=== PATIENT | female | born 1940 | race Caucasian/White ===

== ENCOUNTER → 2018-01-16 | Outpatient (CLI) | payer MEDICARE, BC ==
[2018-01-16 10:21] LABS: Albumin 3.9 g/dL (3.5-5.0); Calcium 9.4 mg/dL (8.4-10.2); Potassium 4.8 mmol/L (3.5-5.1); Total Bilirubin 0.5 mg/dL (0.2-1.3); Total Protein 6.6 g/dL (6.3-8.2)
[2018-01-16 10:25] LABS: Basophils % (A) 1 %; Eosinophils # (A) 0.1 k/uL (0-0.7); Eosinophils % (A) 2 %; HCT 38.9 % (34.0-46.0); HGB 12.9 gm/dL (11.4-16.0); Lymphocytes # (A) 1.2 k/uL (1.0-4.8); Lymphocytes % (A) 17 %; MCH 32.2 pg (25.0-35.0); MCHC 33.1 g/dL (31.0-37.0); Mean Platelet Volume 6.9; Monocytes # (A) 0.4 k/uL (0-1.0); Monocytes % (A) 6 %; Neutrophils # (A) 4.8 k/uL (1.3-7.7); Neutrophils % (A) 71 %; Platelet Count 221 k/uL (150-450); RBC 4.01 m/uL (3.80-5.40); RDW 12.8 % (11.5-15.5); WBC 6.7 k/uL (3.8-10.6)
[2018-01-16 10:56] LABS: Appearance,Urine Clear (Clear); Bacteria,Urine Rare /hpf; Bilirubin,Urine Negative (Negative); Blood,Urine Negative (Negative); Color,Urine Yellow; Glucose,Urine (UA) Negative (Negative); Ketones,Urine Negative (Negative); Leukocyte Esterase,Urine Trace (Negative); Mucus,Urine Rare /hpf; Nitrite,Urine Negative (Negative); Protein,Urine Negative (Negative); RBC,Urine 2 /hpf (0-5); Specific Gravity,Urine 1.017 (1.001-1.035); Squamous Epithelial Cell,Urine 1 /hpf (0-4); Urobilinogen,Urine <2.0 mg/dL (<2.0); WBC,Urine 2 /hpf (0-5)
== END | disposition home or self-care (01) ==
LOC: LABWHC1 09:44
PROVIDERS: ATTEND Internal Medicine
DX: E55.9 Vitamin D deficiency, unspecified (principal); I10 Essential (primary) hypertension
CPT/HCPCS: 36415; 80053; 80061; 81001; 82306; 85025

== ENCOUNTER 2018-02-13 13:03 | Inpatient (IN) | payer MEDICARE, BC ==
[2018-02-07 12:30] VITALS: BMI 39.4
[~2018-02-13 13:03] MED LIST: HYDROmorphone 0.5 MG/0.5 ML SYRINGE IVP PRN; ONDANSETRON 4 MG/2 ML VIAL IVP ONE; ONDANSETRON 4 MG/2 ML VIAL ONE; ceFAZolin IN SWFI 2 GM/20 ML SYRINGE IVP ONE; fentaNYL (PF) 50 MCG/ML 2 ML AMP IV PRN
[2018-02-13] MEDS: LACTATED RINGERS 1,000 ML IV SCH ×3 (13:49→20:25)
[2018-02-13] MEDS ORDERED: LIDOCAINE 1% 20 ML VIAL (10MG/ML) FOR IV START INTRADERMA ONE (13:50)
[2018-02-13] MEDS ORDERED: MIDAZOLAM 2 MG/2 ML VIAL ONE ×2 (15:02→15:39)
[2018-02-13] MEDS ORDERED: ROPIVACAINE 5 MG/ML 30 ML VIAL ONE (15:39)
[2018-02-13] MEDS ORDERED: PROPOFOL 10 MG/ML 20 ML VIAL IV ONE (15:39)
[2018-02-13] MEDS ORDERED: fentaNYL (PF) 50 MCG/ML 2 ML AMP ONE (15:39)
[2018-02-13] MEDS ORDERED: SUCCINYLCHOLINE CHLORIDE 100 MG/5 ML SYR IV ONE (15:39)
[2018-02-13] MEDS ORDERED: HYDROmorphone (PF) 1 MG/ML ONE (15:39)
[2018-02-13] MEDS ORDERED: PHENYLEPHRINE-0.9% NACL SYG 1 MG/10 ML SYRINGE ONE (15:39)
[2018-02-13] MEDS ORDERED: LIDOCAINE 1% INJ 10MG/ML (20 ML MDV) ONE (15:39)
[2018-02-13] MEDS ORDERED: TEMAZEPAM 15 MG CAP PO PRN (16:54)
[2018-02-13] MEDS ORDERED: ONDANSETRON 4 MG/2 ML VIAL IVP PRN (16:54)
[2018-02-13] MEDS ORDERED: METOCLOPRAMIDE 5 MG/ML 2 ML VIAL IVP PRN (16:54)
[2018-02-13] MEDS ORDERED: SENNOSIDES-DOCUSATE SODIUM 1 EACH TAB PO PRN (16:54)
[2018-02-13] MEDS ORDERED: HYDROmorphone 1 MG/ML 1 ML SYRINGE IVP PRN ×2 (16:54)
[2018-02-13] MEDS ORDERED: diphenhydrAMINE 25 MG CAP PO PRN (16:54)
[2018-02-13] MEDS ORDERED: PROCHLORPERAZINE SUPPOSITORY 25 MG SUPP RECTAL PRN (16:54)
[2018-02-13] MEDS ORDERED: HYDROcodone/APAP 7.5-325MG 1 EACH TAB PO PRN (16:59)
--- NOTE | 2018-02-13 19:01 | P.OP ---
Date of Procedure: 02/13/18 Preoperative Diagnosis: 1. Left hypermobile hallux valgus 2. Left second tarsometatarsal joint arthritis 3. Obesity with a BMI of 39.5 4. Coronary artery disease status post stenting currently on Plavix 5. Hypertension 6. Hypercholesterolemia 7. Left gastrocnemius equinus contracture Postoperative Diagnosis: Same Procedure(s) Performed: 1. Arthrodesis of multiple tarsometatarsal joints (arthrodesis of the first and second tarsometatarsal joint), left foot 2. Correction of left hallux valgus with modified Lapidus procedure 3. Left gastroc recession 4. Application of short leg splint by physician, left leg Anesthesia: FELY Surgeon: Alan Domingo Chief Operator Reformer #1: Brett Maza Estimated Blood Loss (ml): 50 Pathology: none sent Condition: stable Disposition: PACU Indications for Procedure: The patient is a very pleasant 77-year-old female with multiple medical problems including obesity with BMI of 39.5 and coronary artery disease status post stenting currently on Plavix who has had a long-standing history of problems with both of her legs and feet. The patient has been seeing me for a left hallux valgus and midfoot arthritis. Her main complaint on the left foot is a large dorsal bump over the second tarsometatarsal joint. Her bunion also bothers her. She has failed over a year of nonsurgical treatment including activity modification, shoe modification, orthotics, anti-inflammatory pain medications, cortisone injections, and therapy. She requested surgery. My recommendation was to correct her hypermobile bunion with a modified Lapidus procedure and surgically fuse her second tarsometatarsal joint. We had a lengthy discussion with the patient preoperatively on the potential risks and complications of surgery. She understands that she is a higher risk of having a complication due to her obesity, history of coronary artery disease, and Plavix use. She was adamant that she wanted to go forward with surgery. We discussed potential risks and complications of surgery including but not limited to risk of anesthesia, risk of superficial infection, risk of deep infection, risk of damage to local blood vessels or nerves, risk of delayed wound healing, risk of superficial wound necrosis, risk of deep wound necrosis, risk of nonunion of the fusion site, risk of malunion of the fusion site, of under correction of the hallux valgus, risk of overcorrection of the hallux valgus, risk of symptomatically hardware, risk of intraoperative fracture, risk of postoperative fracture, risk of DVT, risk of PE, risk of chronic pain, risk of worsening pain, risk of need for further surgery, risk of other medical complications, and possibly loss of life or limb. The patient voiced her understanding of these potential complications and provided her verbal and written consent to go forward with surgery. Operative Findings: The patient had very thin and friable skin that was easily torn with even gentle retraction. After fusing the first and second tarsometatarsal joint I elected to not address the third tarsometatarsal joint due to concern about soft tissue compromise due to her very tenuous soft tissue envelope. Intraoperative fluoroscopy shots showed minimal degenerative changes on the oblique view of the third tarsometatarsal joint. After fusion of the second and first tarsometatarsal joint there was no longer a dorsal prominence which was her main complaint prior to surgery Description of Procedure: This was identified and prepped of holding and the correct left leg was marked my initials. I reviewed the consent form with the patient all of her questions were answered. The patient had a popliteal and saphenous nerve block placed by anesthesia. She was then brought back to the operating room and positioned on the OR table. A general anesthetic was administered. Preoperative antibiotics were administered. A tourniquet was applied to the proximal aspect of the left leg. All bony prominences were well-padded. The left leg was then prepped and draped in the standard sterile fashion. Prior to starting surgery timeout was performed identifying the correct patient, operative extremity, and procedure. The patient's leg was then elevated, exsanguinated with an Esmarch bandage, and the tourniquet was inflated to 250 mmHg. I began by performing a gastroc recession. An incision was marked out over the medial muscle belly of the distal gastrocnemius 1 thumb breadth posterior to the tibia. Skin incision was made with a scalpel. Dissection was carried down carefully to the subcutaneous tissue with tenotomy scissors. Superficial fascia was incised. I bluntly developed the interval between the gastrocnemius aponeurosis and superficial fascia and between the gastrocnemius aponeurosis and soleus. The plantaris tendon was identified and a 1 cm section removed. Modified right angle retractors were placed isolating the gastrocnemius aponeurosis. I verified that the sural nerve was not adherent to the aponeurosis. The aponeurosis was then sharply released from medial to lateral in its entirety with scissors. Immediately upon releasing the gastrocnemius aponeurosis there is a significant increase in dorsiflexion of the ankle. The wound was then copiously irrigated and closed in layers. Attention was then turned to the dorsal aspect of the left foot. A longitudinal incision was marked out centered between the first and second metatarsals over the midfoot. Skin incision was made with a scalpel. Dissection was carried down carefully to subcutaneous tissue with tenotomy scissors. The sheath over the EHL tendon was identified, incised longitudinally in line with the skin incision, and the EHL tendon was retracted laterally. The periosteum and capsule over the first and second tarsometatarsal joint was then sharply elevated. I began by addressing the hypermobile hallux valgus deformity. A freehanded sawblade was used to remove adhesions medially, plantarly, and laterally. Once the first metatarsal base was adequately released a stab incision was made distally in the first webspace and a lateral release was performed. I released the lateral capsule of the first MTP joint. A varus force was applied to the big toe to release the contracted lateral soft tissues. A joystick was then placed in the base of the first metatarsal. Fluoroscopy was brought in and I was able to adequately reduce the first metatarsal over the sesamoids. Fulcrum was then placed laterally at the base of the first metatarsal. The reduction clamp from the set was then used. One carlotta of the reduction clamp was placed through a stab incision over the lateral aspect of the second metatarsal and the base of the reduction clamp was placed over the medial wall of the first metatarsal. The reduction clamp was then gently tightened until the 1-2 intermetatarsal angle was closed down and the sesamoids were covered. A pin was placed through the reduction guide. Fluoroscopy was used to verify that the 1-2 intermetatarsal angle was closed down. The joint finder was then placed laterally within the joint and the Guide was placed over the joint finder. The cutting guide was pinned into place. A small microsagittal saw was used to remove a small wafer of bone from the base of the first metatarsal and medial cuneiform taking care to not shorten the first ray. Both wafers of bone were removed. The joint was copiously irrigated. The cutting guide was removed and a distractor/compressor device was placed. The joint was gently distracted and a 2.0 mm drill bit was used to fenestrate the exposed bone at the base of the first metatarsal and medial cuneiform. The 12 intermetatarsal clamp and pin was then removed. Compression was applied across the first tarsometatarsal joint. The joint was compressed and there was correction of the hallux valgus deformity. Fluoroscopy was used to verify both apposition of the joint surface and correction of the hallux valgus. I then proceeded to place two 2.7 locking plates dorsally and medially to provide fixation across the first tarsometatarsal joint. Attention was then turned to the second tarsometatarsal joint. A section was carried through the medial incision to the lateral aspect of the second metatarsal base. There were multiple large osteophytes over the dorsal aspect of the first metatarsal which were taken down with a rongeur until the surface was flush. The joint was gently distracted and an osteotome was used to remove cartilage from the base of the second metatarsal and middle cuneiform. The wound was copiously irrigated. A 2.0 mm drill bit was used to fenestrate the bony surfaces to help facilitate fusion. The joint was gently compressed and pinned into place. A 6-hole 2.7 mm plate was contoured over the dorsal aspect of the second tarsometatarsal joint. Nonlocking 2.7 mm screws were placed into the middle cuneiform. I then placed an eccentric 2.7 mm nonlocking screw in the distal aspect of the plate to generate additional compression across the fusion site. 2 additional 2.7 mm screws were placed into the second metatarsal. There was still significant instability through the intercuneiform joint. Due to the placement of the plates I was unable to place an intercuneiform screw from the medial aspect of the medial cuneiform to the middle cuneiform. I was able to place a screw from the dorsal aspect of the medial cuneiform into the second metatarsal base. Prior to placing the screw the intercuneiform joint was roughened with a curette to help facilitate fusion. A solid 2.7 mm screw was placed from the dorsal aspect of the medial cuneiform to the base the second metatarsal. This significantly improved the intercuneiform instability. At this point I elected to not proceed with a third tarsometatarsal joint fusion through a separate lateral incision due to the patient's very tenuous and poor soft tissue envelope. She had very thin friable skin and I had worried that adding a second incision would significantly increase her risk of having a wound complication. The dorsal prominence over her midfoot was completely corrected and this was her main complaint preoperatively. The wound was then copiously irrigated the periosteum over the midfoot was closed with a running 2-0 Vicryl. The deep subcu was reapproximated using 3-0 Monocryl, and the skin was closed with 3-0 nylon. I verified that all instrument, sponge, and sharp counts were correct. The tourniquet was let down. A sterile dressing consisting of Betadine soaked Adaptic, 4 x 4, and web roll was applied. The patient had a well-padded bulky Hernandez splint placed with the ankle in neutral. The patient was then awoken from her anesthetic, transferred to a gurney, and brought to PACU having tolerated the procedure well. Brett Coronado PA-C was required as a skilled facility assistant throughout the procedure. Plan: The patient is going to be admitted overnight for pain control, IV antibiotics, DVT prophylaxis, and internal medicine consultation. She may need discharge to a subacute rehab facility. She is to remain strictly nonweightbearing on her left leg in a splint at all times.
[2018-02-13] MEDS ORDERED: LACTATED RINGERS 1,000 ML IV ONE (19:18)
[2018-02-13] MEDS: HYDROcodone/APAP 7.5-325MG 1 EACH TAB PO PRN (20:22)
[2018-02-13] MEDS: ATORVASTATIN 40 MG TAB PO SCH (20:26)
[2018-02-13] MEDS: HYDROmorphone 1 MG/ML 1 ML SYRINGE IVP PRN (22:30)
[2018-02-13] MEDS: hydrOXYzine PAMOATE 25 MG CAP PO PRN (22:31)
--- NOTE | 2018-02-13 22:37 | CONS ---
CONSULTATION DATE OF CONSULTATION: February 13, 2018. REASON FOR CONSULTATION: Medical management requested by Dr. Domingo. CONSULTATION: This is a very pleasant 57-year-old patient of Dr. David Anderson. The patient has undergone surgery on his left foot for arthrodesis of multiple metatarsal joints. The patient has a dressing in place and pain is present. Chronic stable medical conditions include hypertension, hyperlipidemia, osteoarthritis, urine incontinence, coronary artery disease with stent. The patient's stent was 3 years ago. Currently no nausea or vomiting. Propped up in bed. REVIEW OF SYSTEMS: CONSTITUTIONAL: None. HEENT none. RESPIRATORY none. CARDIOVASCULAR none. GASTROINTESTINAL: None. GENITOURINARY incontinence. MUSCULOSKELETAL: Arthritic pain in joints. DERMATOLOGICAL, HEMATOLOGIC, LYMPHATIC: none. PSYCHIATRY none. NEUROLOGICAL none. PAST MEDICAL HISTORY: Hyperlipidemia, hypertension, minimal forgetfulness, osteoarthritis, bilateral glaucoma, urinary incontinence. PAST SURGICAL HISTORY: Cholecystectomy, cardiac cath with stent, hysterectomy, tonsillectomy, bilateral cataract surgery, right ankle surgery. SOCIAL HISTORY: No smoking, alcohol occasional. . FAMILY HISTORY: Coronary artery disease. HOME MEDICATIONS: 1. Vitamin D3, 25 mcg a day. 2. PreserVision that is 2 soft gel 2 capsules p.o. daily. 3. Centrum Silver 1 tablet p.o. daily. 4. Losartan 100 mg p.o. daily. 5. Calcium 500 mg p.o. daily. 6. Lipitor 40 mg q.h.s. 7. Aspirin 81 mg q.h.s. ALLERGIES: None. PHYSICAL EXAMINATION: VITAL SIGNS: Temperature 97.7, pulse 61, respirations 18, blood pressure 112/56, pulse ox 96 percent on 2 L. GENERAL APPEARANCE: Well built, BMI 39.5, sitting up, awake. EYES: Pupils equal. Conjunctivae normal. HEENT: External appearance of nose and ears normal. Oral cavity normal. NECK JVD not raised. Mass not palpable. RESPIRATORY: Effort normal. LUNGS are clear. CARDIOVASCULAR: 1st and second sounds normal. No edema. ABDOMEN: Soft, nontender. Liver and spleen not palpable. LYMPHATICS: No lymph nodes palpable in the neck or axilla. PSYCHIATRY: Alert and oriented times three. Mood and affect normal. NEUROLOGICAL: Pupils equal. Cranial nerves grossly intact. EXTREMITIES: Left foot in a dressing. INVESTIGATIONS: Blood work from January 16, 2018 shows white count 6.7, hemoglobin 12.9, potassium 4.8. ASSESSMENT: 1. Left foot surgery as above especially for arthrodesis of the tarsometatarsal joints. 2. Hyperlipidemia. 3. Essential hypertension. 4. Benign forgetfulness of the elderly. 5. Primary osteoarthritis. 6. Chronic urinary incontinence. 7. Coronary artery disease with stent. 8. Obesity; BMI 39.3. PLAN: Home medications are resumed. The patient is on IV . The patient is on Lovenox for DVT prophylaxis. Other home medications resumed. Care was discussed with the patient. Thank you, Dr. Domingo. Copy to Dr. David Anderson. MMCARMELAL / VANNAN: [id number] /
[2018-02-14] MEDS: ceFAZolin IN SWFI 2 GM/20 ML SYRINGE IVP SCH ×2 (00:45→10:11)
[2018-02-14] MEDS: HYDROmorphone 1 MG/ML 1 ML SYRINGE IVP PRN ×2 (01:34→09:05)
[2018-02-14] MEDS: HYDROcodone/APAP 7.5-325MG 1 EACH TAB PO PRN ×3 (05:39→18:50)
[2018-02-14] MEDS: LACTATED RINGERS 1,000 ML IV SCH (05:40)
[2018-02-14 07:24] LABS: Glucose,Whole Blood 103 mg/dL (75-99)
[2018-02-14 07:38] LABS: Basophils % (A) 0 %; Eosinophils # (A) 0.1 k/uL (0-0.7); Eosinophils % (A) 1 %; HCT 37.2 % (34.0-46.0); HGB 11.7 gm/dL (11.4-16.0); Lymphocytes # (A) 1.2 k/uL (1.0-4.8); Lymphocytes % (A) 13 %; MCH 31.7 pg (25.0-35.0); MCHC 31.5 g/dL (31.0-37.0); MCV 100.5 fL (80.0-100.0); Mean Platelet Volume 7.8; Monocytes # (A) 0.7 k/uL (0-1.0); Monocytes % (A) 8 %; Neutrophils % (A) 77 %; Platelet Count 210 k/uL (150-450); RDW 12.8 % (11.5-15.5); WBC 9.1 k/uL (3.8-10.6)
[2018-02-14] MEDS: LOSARTAN 50 MG TAB PO SCH (08:56)
[2018-02-14] MEDS: ENOXAPARIN 40 MG/0.4 ML SYRINGE SQ SCH (08:56)
--- NOTE | 2018-02-14 09:39 | P.PN ---
Subjective Progress Note Date: 02/14/18 Principal diagnosis: S/P Arthrodesis of multiple tarsometatarsal joints (arthrodesis of the first and second tarsometatarsal joint), left foot, Correction of left hallux valgus with modified Lapidus procedure, Left gastroc recession Patient is seen at bedside this morning. She is postop day #1 from Arthrodesis of multiple tarsometatarsal joints (arthrodesis of the first and second tarsometatarsal joint), left foot, Correction of left hallux valgus with modified Lapidus procedure, Left gastroc recession. She has pain at the surgical site as expected but denies any new complaints. He denies numbness, tingling or calf pain. Review of systems is negative for fever, chills, chest pain, shortness of breath or other. Objective - Vital Signs Vital signs: Vital Signs Temp 97.9 F 02/13/18 23:15 Pulse 74 02/13/18 23:15 Resp 18 02/13/18 23:15 BP 103/63 02/13/18 23:15 Pulse Ox 98 02/13/18 23:15 Intake & Output 02/13/18 02/14/18 02/14/18 18:59 06:59 18:59 Intake Total 900 1450 Output Total 50 250 Balance 850 1200 Intake: IV 900 100 Intake, IV Titration 1100 Amount Lactated Ringers 1,000 ml 1100 @ 100 mls/hr IV .Q10H [facility] Rx#:[id number] Oral 250 Output: Urine 250 Estimated Blood Loss 50 Other: # Voids 2 - Exam Inspection reveals a benign surgical wound. There is no active bleeding or drainage through splint. Neurovascular status is intact throughout the lower extremity with motor and sensation fully intact. Calf is soft and nontender. Digits show less than 2 second cap refill is present - Constitutional General appearance: Present: no acute distress - Psychiatric Psychiatric: Present: A&O x's 3, appropriate affect, intact judgment & insight - Labs CBC & Chem 7: 02/14/18 07:15 Labs: Abnormal Lab Results - Last 24 Hours (Table) 02/14/18 02/14/18 Range/Units 07:14 07:15 RBC 3.70 L (3.80-5.40) m/uL MCV 100.5 H (80.0-100.0) fL POC Glucose (mg/dL) 103 H (75-99) mg/dL Assessment and Plan (1) Hallux valgus of left foot Narrative/Plan: She will continue with routine postop orthopedic protocol including pain management, wound care, DVT prophylaxis and medical management. Expect that he will transfer to either home or rehab in next few days Current Visit: Yes Status: Acute Priority: Medium Code(s): M20.12 - HALLUX VALGUS (ACQUIRED), LEFT FOOT SNOMED Code(s): 205171240 Time with Patient: Less than 30
--- NOTE | 2018-02-14 10:57 | FL ---
Fluoroscopy HISTORY: Left foot open reduction internal fixation 2 minutes 27 seconds fluoroscopy time supplied to the referring clinician. 3 intraoperative C-arm im ages document the procedure. See dictated report from orthopedic surgery.
--- NOTE | 2018-02-14 10:58 | XR ---
Left foot HISTORY: Open reduction internal fixation 3 intraoperative C-arm images document the procedure
[2018-02-14] MEDS: hydrOXYzine PAMOATE 25 MG CAP PO PRN ×2 (12:12→18:50)
[2018-02-14] MEDS ORDERED: HYDROmorphone 2 MG TAB PO PRN ×3 (14:45→14:47)
[2018-02-14] MEDS: ASPIRIN 81 MG PO SCH (20:41)
[2018-02-14] MEDS: ATORVASTATIN 40 MG TAB PO SCH (20:41)
--- NOTE | 2018-02-14 23:07 | PN ---
PROGRESS NOTE DATE OF SERVICE: 02/14/2018. PRESENTING COMPLAINT: Foot surgery. INTERVAL HISTORY: Patient is status post left foot surgery. Pain is present. Tolerating a light diet. Feels tired, sitting up in a chair. No nausea or vomiting. No chest pain. REVIEW OF SYSTEMS: Done for constitutional, cardiovascular, GI, pulmonary, musculoskeletal; relevant findings as above. CURRENT MEDICATIONS: Reviewed, include Lovenox. PHYSICAL EXAMINATION: Temperature 99, pulse 84, respiratory 21, blood pressure 93/54, pulse ox 96 percent on room air. GENERAL APPEARANCE: Sitting up in a chair, awake. EYES: Pupils equal. Conjunctivae normal. HEENT: External nose and ears normal. Oral cavity normal. NECK: JVD not raised. Mass not palpable. Respiratory effort normal. LUNGS: Clear. CARDIOVASCULAR: 1st and 2nd sounds normal. No edema. ABDOMEN: Soft, nontender. Liver and spleen not palpable. PSYCHIATRY: Alert and oriented x3. Mood and affect normal. Left foot in a cast. INVESTIGATIONS: White count 9.1, hemoglobin 11.7. ASSESSMENT: 1. Left foot surgery including arthrodesis of the tarsometatarsal joints. 2. Hyperlipidemia. 3. Essential hypertension. 4. Benign forgetfulness of the elderly. 5. Primary osteoarthritis. 6. Chronic urinary incontinence. 7. Coronary artery disease with stent. 8. Obesity; body mass index 39.3. PLAN: Continue current medication and treatment plan. Care was discussed with the patient. Thank you, we will follow. MMCARMELAL / VANNAN: [id number] /
[2018-02-15] MEDS: HYDROcodone/APAP 7.5-325MG 1 EACH TAB PO PRN ×4 (00:43→19:14)
[2018-02-15] MEDS: hydrOXYzine PAMOATE 25 MG CAP PO PRN ×4 (00:43→19:15)
[2018-02-15] MEDS ORDERED: LACTULOSE 20 GM/30 ML CUP PO ONE (10:16)
[2018-02-15] MEDS: ENOXAPARIN 40 MG/0.4 ML SYRINGE SQ SCH (10:25)
--- NOTE | 2018-02-15 16:50 | P.PN ---
Subjective Progress Note Date: 02/15/18 Principal diagnosis: S/P Arthrodesis of multiple tarsometatarsal joints (arthrodesis of the first and second tarsometatarsal joint), left foot, Correction of left hallux valgus with modified Lapidus procedure, Left gastroc recession Patient is seen at bedside this morning. She is postop day #2 from Arthrodesis of multiple tarsometatarsal joints (arthrodesis of the first and second tarsometatarsal joint), left foot, Correction of left hallux valgus with modified Lapidus procedure, Left gastroc recession. She has pain at the surgical site as expected but denies any new complaints. He denies numbness, tingling or calf pain. Review of systems is negative for fever, chills, chest pain, shortness of breath or other. Objective - Vital Signs Vital signs: Vital Signs Temp 98.5 F 02/15/18 15:00 Pulse 80 02/15/18 15:00 Resp 16 02/15/18 15:00 BP 119/72 02/15/18 15:00 Pulse Ox 96 02/15/18 15:00 Intake & Output 02/14/18 02/15/18 02/15/18 18:59 06:59 18:59 Intake Total 0 377 Output Total 1700 Balance -1700 377 Intake: Intake, IV Titration 0 Amount Lactated Ringers 1,000 ml 0 @ 20 mls/hr IV .Q24H [facility] Rx#:[id number] Oral 377 Output: Urine 1700 Straight 600 Other: # Voids 0 1 1 # Bowel Movements 1 - Exam Inspection reveals a benign surgical wound. There is no active bleeding or drainage through splint. Neurovascular status is intact throughout the lower extremity with motor and sensation fully intact. Calf is soft and nontender. Digits show less than 2 second cap refill is present - Constitutional General appearance: Present: no acute distress - Psychiatric Psychiatric: Present: A&O x's 3, appropriate affect, intact judgment & insight - Labs CBC & Chem 7: 02/14/18 07:15 Assessment and Plan (1) Hallux valgus of left foot Narrative/Plan: She will continue with routine postop orthopedic protocol including pain management, wound care, DVT prophylaxis and medical management. Expect that he will transfer to rehab tomorrow Current Visit: Yes Status: Acute Priority: Medium Code(s): M20.12 - HALLUX VALGUS (ACQUIRED), LEFT FOOT SNOMED Code(s): 976768771 Time with Patient: Less than 30
[2018-02-15] MEDS: LOSARTAN 50 MG TAB PO SCH (17:07)
--- NOTE | 2018-02-15 17:42 | PN ---
PROGRESS NOTE DATE OF SERVICE: 02/15/18. PRESENTING COMPLAINT: Foot surgery. INTERVAL HISTORY: Patient is status post left foot surgery. Some pain is present. Tolerating a diet. No nausea, vomiting. Awaiting to go to the [facility]. Breathing is stable. No chest pain. REVIEW OF SYSTEMS: Done for constitutional, cardiovascular, GI, pulmonary, musculoskeletal; relevant findings as above. CURRENT MEDICATIONS: Reviewed. PHYSICAL EXAMINATION: Temperature 98.5, pulse 80, respirations 16, blood pressure 119/72, pulse 96 percent on room air. GENERAL APPEARANCE: Sitting up in a chair, awake. EYES: Pupils equal. Conjunctivae normal. HEENT: External appearance of nose and ears normal. Oral cavity normal. NECK: JVD not raised. Mass not palpable. RESPIRATORY: Effort, lungs are clear. CARDIOVASCULAR: First and second sounds, no edema. ABDOMEN: Soft, nontender. Liver and spleen not palpable. PSYCHIATRY: Alert and x3. Left foot in a cast. INVESTIGATIONS: No blood work from today. ASSESSMENT: 1. Left foot surgery including arthrodesis of the tarsometatarsal joints. 2. Hyperlipidemia. 3. Essential hypertension. 4. Benign forgetfulness of the elderly. 5. Primary osteoarthritis. 6. Chronic urine incontinence. 7. Coronary artery disease with history prior stents. 8. Obesity; BMI 39.3. PLAN: Stable, continue current medication and treatment plan. Patient should be able to go back to the [facility] tomorrow. I did complete the medical part of the med rec. MMCARLINE / HAMLET: [id number] /
[2018-02-15] MEDS: ATORVASTATIN 40 MG TAB PO SCH (21:39)
[2018-02-15] MEDS: ASPIRIN 81 MG PO SCH (21:39)
[2018-02-16 00:58] VITALS: TEMP 98.5
[2018-02-16] MEDS: HYDROcodone/APAP 7.5-325MG 1 EACH TAB PO PRN (08:59)
[2018-02-16] MEDS: ENOXAPARIN 40 MG/0.4 ML SYRINGE SQ SCH (09:00)
[2018-02-16] MEDS: hydrOXYzine PAMOATE 25 MG CAP PO PRN (09:00)
[2018-02-16] MEDS: LOSARTAN 50 MG TAB PO SCH (09:00)
--- NOTE | 2018-02-16 09:50 | P.DS ---
Providers Date of admission: 02/13/18 13:03 Expected date of discharge: 02/16/18 Attending physician: Alan Domingo Consults: 02/13/18 16:54 Consult Physician Routine Consulting Provider: Oswald Nunez Consult Reason/Comments: post op medical management Do you want consulting provider notified?: Yes Primary care physician: David Anderson - Discharge Diagnosis(es) (1) Hallux valgus of left foot Current Visit: Yes Status: Acute Priority: Medium (2) Tendinitis of left foot Current Visit: Yes Status: Acute Hospital Course: This is a pleasant 77-year-old female who presented with left hypermobile hallux valgus and left second tarsometatarsal joint arthritis who failed outpatient conservative therapy. She was admitted for correction of left hallux valgus with modified Lapidus procedure, arthrodesis of multiple tarsometatarsal joints, and left gastroc resection. The patient tolerated the procedure well and did well postoperatively. She has maintained the splint over the left lower extremity. She has been nonweightbearing on the left lower extremity. She is planning for discharge to [facility] rehabilitation facility today. Condition on day of discharge stable. Patient will be discharged to [facility]. Patient was cleared preoperatively for surgery by Dr. Anderson. Patient currently denies any nausea, vomiting, fever, or chills. Patient is eating and voiding freely without difficulty. Patient should keep dressing over the left lower extremity clean, dry, intact. She may elevate and apply ice over the dressing for comfort support as needed. Prescriptions for Jansen 7.5 mg/325 mg and Colace have been written in place in the chart by Brett Maza PA-C. MAPS was previously reviewed. Physical Exam on day of discharge: Patient is awake, alert, and oriented 3 Vital signs stable Good chest excursion with deep inspiration and expiration Abdomen soft nontender Bulky splint with Geovanny wrap is intact over the left lower extremity Splint is clean, dry, intact with no active drainage Patient is able to wiggle toes of the left foot without difficulty Neurovascular intact left lower extremity No pain with palpation over the left knee No signs or symptoms of DVT; no calf pain on the right Extensor hallucis longus, plantarflexion, and dorsiflexion positive sustained on the right Procedures: Correction of left hallux valgus with modified Lapidus procedure, arthrodesis of multiple tarsometatarsal joints, and left gastroc resection Patient Condition at Discharge: Stable Plan - Discharge Summary Discharge Rx Participant: Yes New Discharge Prescriptions: New Docusate [Colace] 100 mg PO BID #60 capsule HYDROcodone/APAP 7.5-325MG [Jansen 7.5-325] 1 - 2 each PO Q6HR PRN #56 tab PRN Reason: Pain Melatonin 3 mg PO HS #1 tablet Continue Aspirin 81 mg PO HS Atorvastatin [Lipitor] 40 mg PO HS Vitamin D3 25 mcg PO DAILY Vit C/E/Zn/Coppr/Lutein/Zeaxan [Preservision Areds 2 Softgel] 2 cap PO DAILY Multivit-Min/FA/Lycopen/Lutein [Centrum Silver Tablet] 1 tab PO DAILY Losartan Potassium 100 mg PO QAM Calcium 500 mg PO DAILY Discharge Medication List Aspirin 81 mg PO HS 01/29/14 [History] Atorvastatin [Lipitor] 40 mg PO HS 02/07/18 [History] Calcium 500 mg PO DAILY 02/07/18 [History] Losartan Potassium 100 mg PO QAM 02/07/18 [History] Multivit-Min/FA/Lycopen/Lutein [Centrum Silver Tablet] 1 tab PO DAILY 02/07/18 [ History] Vit C/E/Zn/Coppr/Lutein/Zeaxan [Preservision Areds 2 Softgel] 2 cap PO DAILY 11/19 [History] Vitamin D3 25 mcg PO DAILY 02/07/18 [History] Docusate [Colace] 100 mg PO BID #60 capsule 02/15/18 [Rx] HYDROcodone/APAP 7.5-325MG [Jansen 7.5-325] 1 - 2 each PO Q6HR PRN #56 tab [Rx] Melatonin 3 mg PO HS #1 tablet 02/15/18 [Rx] Follow up Appointment(s)/Referral(s): Alan Domingo MD [Medical Doctor] - 1 Week Activity/Diet/Wound Care/Special Instructions: 1. non weight bearing 2. maintain splint 3. elevate leg 4. take meds as directed 5. F/U with Dr. Domingo in office Discharge Disposition: TRANSFER TO [facility]/F
[2018-02-16 11:48] VITALS: BP 113/66; PULSE 88; RESP 16
== END 2018-02-16 12:54 | DRG 502 ==
LOC: 2ORMAIN 13:03 → 3SUR 18:36
PROVIDERS: ADMIT Orthopaedic Surgery; ATTEND Orthopaedic Surgery
PROC: 0LSP0ZZ Reposition Left Lower Leg Tendon, Open Approach (ICD-10-PCS; 2018-02-13)
PROC: 0SNN0ZZ Release Left Metatarsal-Phalangeal Joint, Open Approach (ICD-10-PCS; 2018-02-13)
PROC: 0QBP0ZZ Excision of Left Metatarsal, Open Approach (ICD-10-PCS; 2018-02-13)
PROC: 0SGN0ZZ (ICD-10-PCS; principal; 2018-02-13 15:15)
DX: M20.12 Hallux valgus (acquired), left foot (principal); M21.619 Bunion of unspecified foot; M77.52 Other enthesopathy of left foot and ankle; R32 Unspecified urinary incontinence; Z68.39 Body mass index [BMI] 39.0-39.9, adult; M19.91 Primary osteoarthritis, unspecified site; I25.10 Atherosclerotic heart disease of native coronary artery without angina pectoris; I10 Essential (primary) hypertension; Z82.49 Family history of ischemic heart disease and other diseases of the circulatory system; Z90.710 Acquired absence of both cervix and uterus; Z95.5 Presence of coronary angioplasty implant and graft; Z98.1 Arthrodesis status; E78.00 Pure hypercholesterolemia, unspecified; E66.9 Obesity, unspecified; M24.575 Contracture, left foot; Z98.42 Cataract extraction status, left eye; Z98.41 Cataract extraction status, right eye; H40.9 Unspecified glaucoma; Z79.82 Long term (current) use of aspirin; Z79.899 Other long term (current) drug therapy; L98.8 Other specified disorders of the skin and subcutaneous tissue
CPT/HCPCS: 82306; 85025

== ENCOUNTER → 2022-07-07 | Outpatient (CLI) | payer MEDICARE, BC ==
--- NOTE | 2022-07-07 15:36 | BD ---
EXAMINATION TYPE: Axial Bone Density DATE OF EXAM: 07/07/2022 COMPARISON: NONE CLINICAL HISTORY: 81 years year old Female. ICD-10 CODE: M85.80 DISORDER OF BONE DENSITY Height: 63.5 IN Weight: 187 LBS FRAX RISK QUESTIONS: History of Fracture in Adulthood: RT ANKLE FX AGE 41 RISK FACTORS HISTORY OF: Active: LIMITED Diet low in dairy products/other sources of calcium: YES Postmenopausal woman: PARTIAL HYST AGE 44 MEDICATIONS: Additional Medications: CALCIUM, VIT D, LOSARTAN, ATORVASTATIN EXAM MEASUREMENTS: Bone mineral densitometry was performed using the [employer] System. Bone mineral density as measured about the Lumbar spine is: ----- L1-L4(G/cm2): 1.515 T Score Values are as follows: ----- L1: 2.3 ----- L2: 3.1 ----- L3: 3.1 ----- L4: 2.6 ----- L1-L4: 2.8 Bone mineral density BASELINE Bone mineral density about the R hip (g/cm2): 0.861 Bone mineral density about the L hip (g/cm2): 1.002 T Score values are as follows: -----R Neck: -1.3 -----L Neck: -0.3 -----R Total: -0.7 -----L Total: 0.0 Bone mineral density BASELINE FRAX%s: The graph provided illustrates a 17.4 chance for a major osteoporotic fx and a 3.8 chance for the hips probability for fx in 10 years time. IMPRESSION: Osteopenia (T Score between -2.5 and -1). There is slightly increased risk of fracture and the patient may be considered for treatment. Re-Screen 2-5 years. NOTE: T-SCORE=SD OF THE YOUNG ADULT MEAN.
== END | disposition home or self-care (01) ==
LOC: RADBDWWP 13:49
PROVIDERS: ATTEND Family Medicine
DX: M85.851 Other specified disorders of bone density and structure, right thigh (principal); Z78.0 Asymptomatic menopausal state
CPT/HCPCS: 77080